=== PATIENT | female | born 1980 | race African-American/Black ===

== ENCOUNTER 2017-09-24 09:21 | Emergency (ER) | payer OTHER ==
[~2017-09-24] VITALS: Ht 170.2 cm; Wt 81.6 kg
[2017-09-24 09:34] VITALS: BP 116/88
[2017-09-24] MEDS ORDERED: DIAZ5TAB PO (10:56)
[2017-09-24] MEDS ORDERED: IBUP800T19 PO (10:56)
[2017-09-24] MEDS ORDERED: HYDR-971 PO (10:56)
[2017-09-24 10:59] LABS: BILIRUBIN,URINE NEG (NEG); CLARITY,URINE HAZY; COLOR,URINE YELLOW; GLUCOSE,URINE NEG (NEG)
[2017-09-24 11:00] LABS: BACTERIA,URINE FEW /HPF (0-FEW); NITRITE,URINE NEG (NEG); SQUAMOUS EPITHELIAL CELL,UR FEW /LPF; UROBILINOGEN,URINE 0.2 mg/dL (0.2 mg/dL)
[2017-09-24 11:01] LABS: U PREG PATIENT NEGATIVE (NEG)
--- NOTE | 2017-09-24 12:44 | RAD ---
Abdominal and Pelvis CT, Without Contrast: History: 3 days of left flank pain and hematuria. Comparison: None. Procedure: Axial images are obtained of the abdomen and pelvis, without IV or oral contrast. CT Abdomen without Contrast: Findings: Evaluation of solid organs is limited without contrast. Evaluation of stomach and bowel is limited without oral contrast. Liver: Normal. Spleen: Normal. Pancreas: Normal. Adrenal Glands: Normal. Kidneys: There is a small cyst in the lateral left kidney. There is no stones or hydronephrosis. There is no free air or free fluid. There is no lymphadenopathy. Impression: Please see CT Pelvis without Contrast. End Impression. CT Pelvis without Contrast: Findings: The urinary bladder appears normal. There is no free fluid. There is no lymphadenopathy. There is no pericolonic inflammation identified. The appendix is normal. There is air and stool scattered throughout the colon. Impression: 1. No evidence of urolithiasis or obstructive uropathy. 2. Mild constipation versus colonic ileus. End impression PQRS Compliance Statement: One or more of the following individualized dose reduction techniques were utilized for this examination: 1. Automated exposure control 2. Adjustment of the mA and/or kV according to patient size 3. Use of iterative reconstruction technique Electronically signed by: Sergio Harkins III, MD (09/24/2017 12:41 PM) [id number]
[2017-09-24] MEDS: IBUPROFEN 400 MG TABLET. PO ONE ×2 (13:17→13:18)
--- NOTE | 2017-09-24 13:23 | ED.ADGEN ---
Past History Past Medical History: No Pertinent History Past Surgical History: No Surgical History Alcohol Use: None Drug Use: None Adult General HPI HPI Patient is a 37 year old female who presents with back pain. Patient has been having symptoms over the last 3 days. She did not have any inciting event or trauma. She does have a prior history of low back pain which has not been chronic but has been episodic in the past. This particular episode has been going on for 3 days. The patient complains of pain of the left lower lumbar area. Pain is worse with movement. She describes the pain to feel like muscle spasm. The patient does work as a certified nurses aide. She has no numbness, tingling, or radiation of pain down the legs. She has no bowel or bladder problems. No recent fever or chills. Review of Systems Review of Systems Constitutional: Denies fever or chills Eyes: Denies change in visual acuity HENT: Denies nasal congestion Respiratory: Denies cough Cardiovascular: No additional information GI: Denies abdominal pain, nausea : Denies dysuria or hematuria Musculoskeletal: back pain as documented above Integument: Denies rash or skin lesions Neurologic: Denies headache Endocrine: Denies polyuria or polydipsia All other systems were reviewed and found to be within normal limits, except as documented in this note. Current Medications Current Medications Current Medications Medications (Trade) Dose Ordered Sig/Yossi Start Time Stop Time Status Last Admin Dose Admin Ibuprofen (Motrin) 800 mg 1X ONCE 09/24/17 13:25 09/24/17 13:26 09/24/17 13:17 800 MG Allergies Allergies Allergies Coded Allergies Type Severity Reaction Last Updated Verified No Known Drug Allergies 09/24/17 No Physical Exam Physical Exam Constitutional: Well developed, well nourished, no acute distress, non-toxic appearance. HENT: Normocephalic, atraumatic, bilateral external ears normal, oropharynx moist Eyes: PERRLA, EOMI, conjunctiva normal Neck: Normal range of motion Cardiovascular:Heart rate regular rhythm, no murmur Lungs & Thorax: Bilateral breath sounds clear to auscultation Abdomen: Bowel sounds normal, soft, no tenderness Skin: Warm, dry, no erythema, no rash Back: Tenderness to palpation and muscle spasm about the left lumbar paraspinal muscles Neurologic: Alert and oriented X 3, 5/5 motor strength bilateral LE's. 2/4 DTR' s at achilles and patellar levels Psychologic: Affect normal Current Patient Data Vital Signs Vital Signs Date Time Temp Pulse Resp B/P (MAP) Pulse Ox O2 Delivery O2 Flow Rate FiO2 09/24/17 09:34 98.1 88 18 100 Room Air Lab Results Laboratory Tests Test 09/24/17 09:43 09/24/17 09:47 Urine Collection Type Unknown Urine Color Yellow Urine Clarity Hazy Urine pH 7.0 Urine Specific [place] 1.015 Urine Protein Neg (NEG-TRACE) Urine Glucose (UA) Neg mg/dL (NEG) Urine Ketones (Stick) Neg mg/dL (NEG) Urine Blood Large (NEG) Urine Nitrite Neg (NEG) Urine Bilirubin Neg (NEG) Urine Urobilinogen Dipstick 0.2 mg/dL (0.2 mg/dL) Urine Leukocyte Esterase Neg (NEG) Urine RBC 3-5 /HPF (0-2) Urine WBC 1-4 /HPF (0-4) Urine Squamous Epithelial Cells Few /LPF Urine Bacteria Few /HPF (0-FEW) Urine Test Negative (NEG) POC Urine HCG, Qualitative hcg negative (Negative) EKG EKG [] Radiology/Procedures Radiology/Procedures CT Abdomen without Contrast: Findings: Evaluation of solid organs is limited without contrast. Evaluation of stomach and bowel is limited without oral contrast. Liver: Normal. Spleen: Normal. Pancreas: Normal. Adrenal Glands: Normal. Kidneys: There is a small cyst in the lateral left kidney. There is no stones or hydronephrosis. There is no free air or free fluid. There is no lymphadenopathy. Impression: Please see CT Pelvis without Contrast. End Impression. CT Pelvis without Contrast: Findings: The urinary bladder appears normal. There is no free fluid. There is no lymphadenopathy. There is no pericolonic inflammation identified. The appendix is normal. There is air and stool scattered throughout the colon. Impression: 1. No evidence of urolithiasis or obstructive uropathy. 2. Mild constipation versus colonic ileus. Course & Med Decision Making Course & Med Decision Making Pertinent Labs and Imaging studies reviewed. (See chart for details) Patient is seen and examined in the emergency department. Her physical exam is most consistent with musculoskeletal low back pain. The CT scan was done to rule out a kidney stone after the patient was noted to have hematuria. She stated her last menstrual cycle was several weeks earlier and there was no reason that she would have blood in her urine today. CT scan did not reveal kidney stone but did reveal some constipation versus colonic ileus. The patient' s abdomen is completely soft and a benign exam. She does not complain of constipation subjectively. Plan wound was for this patient to be discharged home with ibuprofen, Valium, and [place] for pain control. She was initially discharged from the ER and when she was completing the deep part process in registration, that is when it was noted that she had blood in her urine. She was subsequently brought back into the emergency room to undergo CT scan to rule out kidney stone as a source for her pain. The patient should not be charged twice for this visit although 2 encounters may have been generated on the same day. The patient did not actually physically leave the property before returning for the CT scan. At discharge, the patient understood the plan of care. All of her questions were answered. Opiate precautions were discussed and she was agreeable and understood proper use of these medications. She was provided a note to be off work on her next shift. Final Impression Final Impression Musculoskeletal Back Pain Lisa Disclaimer Dragon Disclaimer This electronic medical record was generated, in whole or in part, using a voice recognition dictation system. NICOLE MAY DO Sep 24, 2017 13:23
== END 2017-09-24 13:30 | disposition home or self-care (01) ==
LOC: EDBD 09:21 → ER 09:21
DX: M54.5 Low back pain (principal)
CPT/HCPCS: 74176; 81001; 81025; 99285-25